=== PATIENT | male | born 1960 | race Caucasian/White ===

== ENCOUNTER 2020-03-02 05:50 | Observation (INO) ==
[2020-03-02] MEDS ORDERED: Lactated Ringers 1000 ml BAG 1,000 ML IV SCH (06:00)
[2020-03-02] MEDS ORDERED: Buffered Lidocaine 1% SYRIN 1 ml INTRADERM ONE ×2 (06:00→06:18)
[2020-03-02] MEDS ORDERED: ceFAZolin 2 GM PREMIX 2 GM/50 ML BAG ONE (06:18)
[2020-03-02] MEDS ORDERED: Rocuronium 50 mg VIAL 10 mg/ml 5 ml VIAL (50 mg) ONE (06:54)
[2020-03-02] MEDS ORDERED: fentaNYL 250 mcg/5 ml 50 MCG/ML 5 ml VIAL (250 MCG) ONE (06:54)
[2020-03-02] MEDS ORDERED: Midazolam 5 mg/5 ml VIAL 1 mg/ml 5 ml VIAL (5 mg) ONE (06:54)
[2020-03-02] MEDS ORDERED: Bupivacaine 0.5% SDV PF 30ML VIAL ONE (06:57)
[2020-03-02] MEDS ORDERED: Propofol 10 MG/ML 20 ML BTL ONE ×2 (06:57→08:57)
[2020-03-02] MEDS ORDERED: Ondansetron 4 mg VIAL 2 MG/ML 2 ml VIAL IV PRN ×2 (08:18→10:00)
[2020-03-02] MEDS ORDERED: fentaNYL 100 mcg/2 ml 50 MCG/ML VIAL IV PRN (08:18)
[2020-03-02] MEDS ORDERED: Naloxone 0.4 mg VIAL 0.4 mg/ml 1 ml VIAL IV PRN (08:18)
[2020-03-02] MEDS ORDERED: HYDROmorphone 1 MG/1 ML SYRINGE IV PRN (08:18)
[2020-03-02] MEDS ORDERED: Vancomycin 1,000 MG VIAL ONE (09:04)
[2020-03-02] MEDS ORDERED: Magnesium Hydroxide LIQ 30 ML UDC PO PRN (10:00)
[2020-03-02] MEDS ORDERED: Ondansetron ODT 4 mg TAB 4 MG TAB PO PRN (10:00)
[2020-03-02] MEDS ORDERED: Morphine 2 MG/ML SYRINGE IV PRN (10:00)
[2020-03-02] MEDS ORDERED: diPHENhydraMINE 25 mg TAB PO PRN (10:00)
[2020-03-02] MEDS ORDERED: Lactulose 30 ml UDC PO PRN (10:00)
[2020-03-02] MEDS ORDERED: diPHENhydraMINE IV 50 MG/ML 1 ml VIAL (BENADRYL) IV PRN (10:00)
[2020-03-02] MEDS ORDERED: SILDENAFIL 50 MG PO PRN (10:08)
[2020-03-02] MEDS: D5W 1/2 NS 1000 ml BAG 1,000 ML IV SCH ×2 (11:59→23:58)
[2020-03-02] MEDS ORDERED: Phenylephrine 40 mcg/mL 10mL (400mcg) SYRINGE ONE (12:25)
[2020-03-02] MEDS ORDERED: Ondansetron 4 mg VIAL 2 MG/ML 2 ml VIAL ONE (13:03)
[2020-03-02] MEDS ORDERED: Metoclopramide 5 MG/ML VIAL (10 mg) ONE (13:03)
[2020-03-02] MEDS ORDERED: NS 0.9% 1000 ml BAG 1,000 ML IV ONE (15:56)
[2020-03-02] MEDS: ceFAZolin 1 GM ADVAN 1 GM in NS 0.9% 50 ML 50 ML IVPB SCH ×2 (18:16→23:58)
[2020-03-02] MEDS: Magnesium Hydroxide LIQ 30 ML UDC PO SCH (20:35)
[2020-03-02] MEDS ORDERED: CMCS: Simvastatin 10 mg TAB (NF) PO SCH (21:00)
[2020-03-03 05:56] LABS: Hematocrit 31 % (42-52); Hemoglobin 10.9 g/dL (14.0-18.0); Mean Platelet Volume 6.8 fL (7.4-10.4); Platelet Count 123 10^3/uL (150-450)
[2020-03-03 06:10] LABS: Calcium 7.9 mg/dL (8.6-10.3); EGFR African American 92.5 (>60); EGFR Non-African American 76.5 (>60); Potassium 3.2 mmol/L (3.5-5.0)
[2020-03-03] MEDS: Magnesium Hydroxide LIQ 30 ML UDC PO SCH (08:16)
[2020-03-03] MEDS: ceFAZolin 1 GM ADVAN 1 GM in NS 0.9% 50 ML 50 ML IVPB SCH (08:16)
[2020-03-03] MEDS ORDERED: Potassium Chlor 20 meq TAB.ER PO SCH (09:00)
[2020-03-03] MEDS ORDERED: Vitamin THERAPEUTIC TAB PO SCH (09:00)
[2020-03-03 11:22] VITALS: BP 114/54
== END 2020-03-03 15:36 | disposition home or self-care (01) ==
LOC: AA 05:50 → INTOOBSV 05:50 → SSU 11:54
PROVIDERS: ADMIT Orthopaedic Surgery; ATTEND Orthopaedic Surgery